=== PATIENT | female | born 2000 | race Caucasian/White ===

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

== ENCOUNTER 2023-10-30 13:14 | Emergency (ER) | payer OTHER, SELFPAY ==
--- NOTE | 2023-10-30 13:15 | ED.NAVMDI ---
HPI - Nausea/Vomiting/Diarrhea General Chief complaint: Nausea/Vomiting/Diarrhea Stated complaint: Vomiting and Diarrhea Time Seen by Provider: 10/30/23 13:15 Source: patient Mode of arrival: ambulatory Limitations: no limitations History of Present Illness HPI Narrative: Tosin is a 23-year-old female patient presenting to the clinic today with complaints of nausea and diarrhea that started last night around 8:00 p.m. She reports she made steak, rice, and broccoli for supper last night. Is concerned about foot poisoning. Her fiance and child ate the same food and are not presenting with these symptoms. She denies any known fever but has felt cold and is having some leg cramping. No ST but reports headache and dizziness with standing. States that any time she eats or drinks she has diarrhea. Nausea comes and goes. She has not had any vomiting. She is concerned about being contagious as she is having family travel from [place] to see her today. Related Data Home Medications Medication Instructions Recorded Confirmed levonorgestrel 0.1 mg-ethinyl 1 tablet PO DAILY 10/30/23 10/30/23 estradiol 0.02 mg (21)/iron (7) tablet (Wilfredo) trazodone 50 mg tablet 50 mg PO HS 10/30/23 10/30/23 Allergies Allergy/AdvReac Type Severity Reaction Status Date / Time No Known Allergies Allergy Verified 10/30/23 13:16 Review of Systems Review of Systems: Pertinent positives per HPI. Patient denies any fever, rash, visual changes, cough, runny nose, sore throat, shortness of breath, chest pain, palpitations, vomiting, constipation, or any urinary issues. [facility] Past Medical History Medical History Asthma Close exposure to COVID-19 virus Difficulty breathing Difficulty sleeping GERD (gastroesophageal reflux disease) History of gingivitis HSV (herpes simplex virus) anogenital infection Surgical History Surgical History History of surgical removal of ganglion cyst Hx of wisdom tooth extraction Family History Family History Father Heart disease Grandparent Lymphoma Grandparent Diabetes mellitus Social History Social History Smoking status: Never smoker Second hand tobacco smoke exposure: Yes Alcohol intake: never Substance use: never Gender identity (if verbalized by the patient): Female Spiritual care concerns: No Comments At the time of my signature, I reviewed and agree with the nursing past medical, surgical, social, and family history. There is no relevant family history pertinent to the patient complaint. Exam Narrative: General: Well-developed, well nourished, in no apparent distress. Head: Normocephalic, atraumatic. Cardio: Regular rate and rhythm, s1 and s2 normal, no murmur appreciated. Resp: Clear to auscultation bilaterally, no rhonchi, rales, wheezing or rubs. Abdomen: Soft, pliable, bowel sounds present in all quadrants, generalized tenderness to palpation, no organomegly, no CVAT tenderness. Course Course Emergency Course: Portions of this record may have been created with voice recognition software. Level of Care: Express Care Visit Vital Signs Vital signs: Vital signs reviewed Transfer Transfered to: [place] Transportation: Other (private car) Transfer rationale: Dehydration, hypotension, muscle cramping, dizziness, nausea/diarrhea Accepting physician: Chetan Klein[facility] Transfer comments: Private car- mother to drive. MDM - Nausea/Vomiting/Diarrhea MDM Narrative Medical decision making narrative: At the time of visit patient is resting comfortably on the exam table. Patient appears to be nontoxic. Labs: COVID and influenza test was negative Orthostatics: Lying-heart rate 112 with a blood pressure 93/
[2023-10-30 13:24] VITALS: BP 115/74; PULSE 119; RESP 18; TEMP 37.3; O2SAT 100
[2023-10-30 13:30] VITALS: BP 93/55; PULSE 112
[2023-10-30 13:39] VITALS: BP 90/52; PULSE 123
[2023-10-30 13:41] VITALS: BP 74/25; PULSE 144
== END 2023-10-30 13:46 | disposition short-term general hospital (02) ==
PROVIDERS: Emergency Provider Nurse Practitioner Family; PCP Nurse Practitioner Family
DX: I95.1 Orthostatic hypotension (principal); E86.0 Dehydration; R19.7 Diarrhea, unspecified; R11.0 Nausea; Z20.822 Contact with and (suspected) exposure to COVID-19; J45.909 Unspecified asthma, uncomplicated; K21.9 Gastro-esophageal reflux disease without esophagitis
CPT/HCPCS: 87426; 87804; 99213; G0463

== ENCOUNTER 2023-10-30 14:03 | Emergency (ER) | payer OTHER, SELFPAY ==
[2023-10-30 14:06] VITALS: BP 101/58; PULSE 124; RESP 16; TEMP 36.9; O2SAT 100
--- NOTE | 2023-10-30 14:11 | ED.NAVMDI ---
HPI - Nausea/Vomiting/Diarrhea General Chief complaint: Nausea/Vomiting/Diarrhea Stated complaint: Hypotensive, dizziness Time Seen by Provider: 10/30/23 14:10 History of Present Illness HPI Narrative: 23-year-old female presents emergency room for evaluation of nausea vomiting and diarrhea that began this morning. Patient states that she has multiple episodes of nonbilious and nonbloody following. Patient also complains of a headache, dizziness when standing, and body aches. Denies fever belly pain. Denies exposure to ill contacts Related Data Home Medications Medication Instructions Recorded Confirmed levonorgestrel 0.1 mg-ethinyl 1 tablet PO DAILY 10/30/23 10/30/23 estradiol 0.02 mg (21)/iron (7) tablet (Wilfredo) trazodone 50 mg tablet 50 mg PO HS 10/30/23 10/30/23 Allergies Allergy/AdvReac Type Severity Reaction Status Date / Time No Known Allergies Allergy Verified 10/30/23 13:16 Review of Systems Review of Systems: ROS unremarkable except for stated in HPI PMFSH Past Medical History Medical History Asthma Close exposure to COVID-19 virus Difficulty breathing Difficulty sleeping GERD (gastroesophageal reflux disease) History of gingivitis HSV (herpes simplex virus) anogenital infection Surgical History Surgical History History of surgical removal of ganglion cyst Hx of wisdom tooth extraction Family History Family History Father Heart disease Grandparent Lymphoma Grandparent Diabetes mellitus Social History Social History Smoking status: Never smoker Second hand tobacco smoke exposure: Yes Alcohol intake: never Substance use: never Gender identity (if verbalized by the patient): Female Spiritual care concerns: No Exam Narrative: GENERAL: Well-appearing, well-nourished, no physical limitations, and in no acute distress. HEAD: Normocephalic, atraumatic. EYES: Conjunctivae normal, PERRLA and EOMI. ENT: Mucous membranes dry CHEST: Clear to auscultation. No respiratory distress. No wheezes rales or rhonchi. HEART: Tachycardic with normal rhythm. No murmur heard. Normal peripheral pulses. ABDOMEN: Soft, nontender, nondistended, normal active bowel sounds. BACK: No CVA tenderness EXTREMITIES: Normal range of motion. No edema. No clubbing or cyanosis SKIN: Warm, dry, no rash. No noted wounds NEURO: No focal deficits. Alert and oriented x3. MAEW. CN's II-XI intact bilaterally, normal gait PSYCH: Cooperative. Normal mood and affect. Course Vital Signs Vital signs: Vital Signs Temperature 36.9 C 10/30/23 14:06 Pulse Rate 124 H 10/30/23 14:06 Respiratory Rate 16 10/30/23 14:06 Blood Pressure 101/58 L 10/30/23 14:06 Pulse Oximetry 100 10/30/23 14:06 Temperature 36.9 C 10/30/23 14:06 Pulse Rate 124 H 10/30/23 14:06 Respiratory Rate 16 10/30/23 14:06 Blood Pressure 101/58 L 10/30/23 14:06 Pulse Oximetry 100 10/30/23 14:06 MDM - Nausea/Vomiting/Diarrhea Lab Data 10/30/23 14:56 10/30/23 14:56 Labs: Lab Results 10/30/23 10/30/23 Range/Units 14:56 15:09 WBC 8.5 (4.5-10.0) K/mm3 RBC 4.73 (4.2-5.4) M/mm3 Hgb 14.5 D (12.0-15.0) g/dL Hct 42.6 (37.0-47.0) % MCV 90.1 (80-100) fl MCH 30.7 (26-34) pg MCHC 34.0 (32-36) g/dl RDW 12.6 (11.5-14.5) % Plt Count 310 D (150-375) k/mm3 MPV 10.9 H (7.4-10.4) fl Immature Gran % (Auto) 0.2 (0-0.5) % Neut % (Auto) 86.5 H (45.5-73.1) % Lymph % (Auto) 5.4 L (18.3-44.2) % [place] % (Auto) 7.7 (2.6-8.5) % Eos % (Auto) 0.0 (0-4.4) % Baso % (Auto) 0.2 (0.2-1.2) % Lymph # (Auto) 0.46 L (0.9-3.2) K/mm3 [place] # (Auto) 0.7 H (0.1-0.6) K/mm3 Eos #
[2023-10-30] MEDS: ONDANSETRON INJ 4 MG/2 ML VIAL IV PUSH (14:58)
[2023-10-30] MEDS: SODIUM CHLORIDE 0.9% IV 1,000 ML 999 ML IV CONT ×2 (14:58)
[2023-10-30] MEDS: DICYCLOMINE HCL INJ 20 MG/2 ML VIAL IM (14:59)
[2023-10-30 15:01] LABS: Basophils Percent Auto 0.2 % (0.2-1.2); Hematocrit 42.6 % (37.0-47.0); Hemoglobin 14.5 g/dL (12.0-15.0); Immature Granulocyte Percent A 0.2 % (0-0.5); Lymphocytes Percent Auto 5.4 % (18.3-44.2); Mean Corpuscular Hemoglobin 30.7 pg (26-34); Mean Corpuscular Volume 90.1 fl (80-100); Mean Platelet Volume 10.9 fl (7.4-10.4); Monocytes Percent Auto 7.7 % (2.6-8.5); Neutrophils Percent Auto 86.5 % (45.5-73.1); Platelet Count Result 310 k/mm3 (150-375); Red Blood Count 4.73 M/mm3 (4.2-5.4); Red Cell Distribution Width 12.6 % (11.5-14.5); White Blood Count 8.5 K/mm3 (4.5-10.0)
[2023-10-30 15:02] LABS: Immature Granulocyte Absolute 0.02 K/mm3 (0.00-0.031); Lymphocytes Absolute Auto 0.46 K/mm3 (0.9-3.2); Monocytes Absolute Auto 0.7 K/mm3 (0.1-0.6); Neutrophils Absolute Auto 7.4 K/mm3 (1.3-6.7)
[2023-10-30 15:12] LABS: Alanine Aminotransferase 18 U/L (6-35); Albumin Level 5.2 g/dL (3.5-5.1); Alkaline Phosphatase 68 U/L (38-126); Anion Gap 12 mmol/L (4-12); Aspartate Amino Transferase 25 U/L (14-36); Bilirubin,Total 1.3 mg/dL (0.2-1.3); Blood Urea Nitrogen 21 mg/dL (7-17); Calcium 9.7 mg/dL (8.4-10.2); Carbon Dioxide 22 mmol/L (22-30); Chloride 104 mmol/L (98-107); Estimated CRCL calculation 91 ml/min; Estimated Glomerular Filt Rate > 60; Glucose 116 mg/dL (65-110); Potassium 3.6 mmol/L (3.4-5.0); Sodium 138 mmol/L (137-145)
[2023-10-30 15:45] LABS: Appearance Urine Turbid (Clear); Bacteria Urine 4+ /hpf; Bilirubin Urine Negative (Negative); Blood Urine Negative (Negative); Color Urine Dark Yellow (Yellow); Glucose Urine UA Negative (Negative); Ketones Urine Trace mg/dL (Negative); Leukocyte Esterase Ur Trace LEU/UL (Negative); Need Manual Microscopic Reviewed; Nitrate Urine Negative (Negative); Non Pathogenic Casts 0-2; Protein Urine 1+ mg/dL (Negative); Squamous Epithelial Cell Urine Many /hpf (Few); pH Urine 5.5 (5.0-9.0)
[2023-10-30 15:48] LABS: Specific Grav Ur 1.034 (1.001-1.035)
[2023-10-30 15:52] LABS: Add Urine Microscopic? YES
[2023-10-30 16:16] VITALS: BP 94/53; PULSE 96; RESP 20; TEMP 37; O2SAT 100
== END 2023-10-30 16:26 | disposition home or self-care (01) ==
PROVIDERS: Emergency Provider Nurse Practitioner Family; PCP Nurse Practitioner Family
DX: K52.9 Noninfective gastroenteritis and colitis, unspecified (principal); J45.909 Unspecified asthma, uncomplicated; K21.9 Gastro-esophageal reflux disease without esophagitis
CPT/HCPCS: 36415; 80053; 81001; 81025; 85025; 87086; 87088; 87426; 87804; 96361; 96372; 96374; 99284; J0500; J2405; J7030

== ENCOUNTER 2024-05-30 18:10 | Emergency (ER) | payer BC, SELFPAY ==
--- NOTE | 2024-05-30 18:12 | ED.URI ---
HPI - URI/Sore Throat General Chief Complaint: Upper Respiratory Infection Stated Complaint: difficult to catch breath,cough,pneumonia exp Time Seen by Provider: 05/30/24 18:12 Source: patient Mode of arrival: ambulatory Limitations: no limitations History of Present Illness HPI Narrative: Tosin is a 23-year-old female patient presenting to the clinic today with complaints of shortness of breath, cough, and pneumonia exposure. She reports to have symptoms for over 1 week. Is coughing up some green phlegm. Denies any chest pain. Patient is 6 weeks MD elicited complaint: sore throat and nasal congestion Related Data Home Medications ?Medication ?Instructions ?Recorded ?Confirmed ?Last Taken ?Type trazodone 50 mg tablet 50 mg PO HS 10/30/23 05/30/24 Unknown History Allergies Allergy/AdvReac Type Severity Reaction Status Date / Time No Known Allergies Allergy Verified 05/30/24 18:13 Review of Systems Review of Systems: Pertinent positives per HPI. Patient denies any fever, chills, rash, headache, visual changes, dizziness, chest pain, palpitations, nausea, vomiting, diarrhea, constipation, abdominal pain, or any urinary issues. [facility] Past Medical History Medical History GERD (gastroesophageal reflux disease) HSV (herpes simplex virus) anogenital infection Close exposure to COVID-19 virus History of gingivitis Asthma Difficulty sleeping Difficulty breathing Surgical History Surgical History History of surgical removal of ganglion cyst Hx of wisdom tooth extraction Family History Family History Father Heart disease Grandparent Lymphoma Grandparent Diabetes mellitus Social History Social History Social History: Caffeine-daily Smoking status: Never smoker Second hand tobacco smoke exposure: Yes Alcohol intake: never Substance use: never Substance use type: does not use Gender identity (if verbalized by the patient): Female Spiritual care concerns: No Comments At the time of my signature, I reviewed and agree with the nursing past medical, surgical, social, and family history. There is no relevant family history pertinent to the patient complaint. Exam Narrative: General: Well-developed, well nourished, in no apparent distress Head: Normocephalic, atraumatic Eyes: Pupils equally round and reactive to light bilaterally, EOM intact, sclera and conjunctive clear, no discharge, lids normal Ears: TMs intact and clear, ear canals clear, no drainage, grossly hearing normal. Nose: Nares patent, clear discharge, no inflammation, no sinus tenderness. Mouth: Oral pharynx without lesions or masses, good dentition, MMM. Neck: Supple, trachea midline, no enlargement of anterior or posterior cervical nodes, no thyroid masses or goiter palpable. Cardio: Regular rate and rhythm, s1 and s2 normal, no murmur appreciated. Resp: Lungs sound mildly congested, no rhonchi, rales, wheezing or rubs Course Course Emergency Course: Portions of this record may have been created with voice recognition software. Level of Care: Express Care Visit Vital Signs Vital signs: Vital Signs Temperature 37.5 C 05/30/24 18:21 Pulse Rate 112 H 05/30/24 18:21 Respiratory Rate 16 05/30/24 18:21 Blood Pressure 126/54 L 05/30/24 18:21 Pulse Oximetry 97 05/30/24 18:21 Oxygen Delivery Room Air 05/30/24 18:21 Temperature 37.5 C 05/30/24 18:21 Pulse Rate 112 H 05/30/24 18:21 Respiratory Rate 16 05/30/24 18:21 Blood Pressure 126/54 L 05/30/24 18:21 Pulse Oximetry 97 05/30/24 18:21 Oxygen Delivery Room Air 05/30/24 18:21 Vital signs reviewed MDM - URI/Sore Throat MDM Narrative Medical decision making narrative: At the time of visit patient is resting comfortably on the exam table. Patient appears to be nontoxic. Plan: Patient has had exposure to pneumonia. She is [address] her on albuterol and azithromycin. Supportive measures were discussed with the patient and they voiced understanding discharge instructions and agrees to treatment plan. Return precautions reviewed Differential Diagnosis Differential diagnosis: Likely upper respiratory infection, otitis media, sinusitis, viral infection, bronchitis, influenza, pharyngitis and other (COVID) Discharge Plan Discharge Clinical Impression: Acute lower respiratory tract infection Patient Disposition: Home, Self-Care Condition: Stable Instructions: Antibiotic Form Additional Instructions: Take prescription medications only as prescribed-albuterol inhaler and azithromycin Increase fluids and stay well hydrated Tylenol for pain/fever Flonase and OTC antihistamines such as Zyrtec or Claritin as directed Vicks vapor rub to open sinuses Sinus rinses for congestion Cepacol spray, cough drops, throat lozenges, warm tea with honey/lemon, gargle salt water to soothe throat BRAT diet for diarrhea Clear liquids x 24 hours then advance as tolerated for nausea/vomiting Go to the ED if you develop a worsening in your condition- high fever not controlled by Tylenol or Motrin, dehydration, weakness, lethargy, shortness of breath, or chest pain. Follow up with your PCP in 3-5 days if symptoms persist. Approved Medications for Patients Cold and Flu Symptoms --Tylenol (regular or extra Strength) Fever (call if over 101?)--Tylenol (regular or extra Strength) Nasal Drainage/Head Congestion--Chlor-Trimeton, Sudafed, Tavist,Tylenol Sinus Cough--Robitussin, Delsym, Mucinex Sore Throat--Chloraseptic, Cepacol lozenges Allergy Symptoms--Benadryl, Zyrtec, Zyrtec D, Claritin, Claritin D Nausea--Emetrol, Vitamin B6 Tablets, Alisa, Alisa Tea, Preggie Pops, B- Suckers Constipation--Milk of Magnesia, Metamucil, Fiberall, Konsyl, Colace (Docusate Sodium) Diarrhea--Imodium, Kaopectate, Follow BRAT diet: bananas, rice, applesauce, tea/toast Heartburn--Maalox, Mylanta, TUMS, Prilosec OTC, Zantac, Tagament, Prevacid, Pepcid Hemorrhoids--Tucks Pads, Anusol, Preparation H, warm sitz baths Patient Language: Lao Prescriptions: New azithromycin 250 mg tablet See Rx Instructions .ROUTE .COMPLEX Qty: 6 0RF Rx Instructions: For 250 mg dose pack: take 500 mg today (day 1), then 250 mg for 4 days (days 2-5) albuterol sulfate 90 mcg/actuation HFA aerosol inhaler 2 puff inhalation Q4-6H PRN (Reason: shortness of breath or wheezing) 30 Days Qty: 8.5 0RF No Action trazodone 50 mg tablet 50 mg PO HS Follow-up/Referrals: Haywood,Blaine Acuña APRN [Primary Care Provider] - Time of Disposition: 18:26 Quality NIHSS Nursing Documentation ED NIHSS nursing documentation: reviewed/agree
[2024-05-30 18:21] VITALS: BP 126/54; PULSE 112; RESP 16; TEMP 37.5; O2SAT 97
== END 2024-05-30 18:30 | disposition home or self-care (01) ==
PROVIDERS: Emergency Provider Nurse Practitioner Family; PCP Nurse Practitioner Family
DX: O99.511 Diseases of the respiratory system complicating pregnancy, first trimester (principal); J22 Unspecified acute lower respiratory infection; J45.909 Unspecified asthma, uncomplicated; O99.611 Diseases of the digestive system complicating pregnancy, first trimester; K21.9 Gastro-esophageal reflux disease without esophagitis; Z3A.01 Less than 8 weeks gestation of pregnancy
CPT/HCPCS: 99213; G0463

== ENCOUNTER 2024-09-28 09:02 | Emergency (ER) | payer BC, SELFPAY ==
--- NOTE | ~2024-09-28 | XR_ITS ---
EXAMINATION: XR foot LT min 3V DATE: 09/28/2024 09:43 INDICATION: Left foot injury TECHNIQUE: Dorsoplantar, two oblique and lateral views of the left foot were obtained. COMPARISON: 01/21/2017 FINDINGS: Again seen is a small avulsion fracture with acute appearance at the proximal tip at the lateral tube rosity at the base of the left fifth metatarsal. This remains in near-anatomic alignment with negligi ble distraction. There is soft tissue swelling along the dorsolateral aspect of the midfoot. No other fractures identified. Joint spaces are normal. IMPRESSION: 1. Recurrent small acute avulsion fracture at the lateral base of the fifth metatarsal which remains in near-anatomic alignment. Reviewed, dictated and finalized at location A. IMPRESSION: 1. Recurrent small acute avulsion fracture at the lateral base of the fifth met atarsal which remains in near-anatomic alignment.
--- NOTE | 2024-09-28 09:03 | ED_ITS ---
HPI - Extremity Injury (Lower) General Chief Complaint: Extremity Injury, Lower Stated Complaint: left foot injury Time Seen by Provider: 09/28/24 09:50 Source: patient and RN notes reviewed Mode of arrival: ambulatory Limitations: no limitations History of Present Illness HPI Narrative: 30-year-old female who is 24 weeks presents with concern for left foot injury. Reports she has sweats yesterday stepping down a into her son room. Reports lateral pain, bruising, swelling. Reports she broke his foot in that area when she was in high school. MD complaint: foot injury Related Data Allergies Allergy/AdvReac Type Severity Reaction Status Date / Time No Known Allergies Allergy Verified 09/28/24 09:04 Review of Systems Review of Systems: CONSTITUTIONAL: Denies malaise, chills, sweats, or fever. SKIN: Denies rash or itching, open skin, laceration, abrasion, redness, warmth MUSCULOSKELETAL: Reports left foot pain, bruising, swelling NEUROLOGIC: Denies numbness, weakness All systems reviewed & are unremarkable except as noted in HPI and below PMFSH Past Medical History Medical History GERD (gastroesophageal reflux disease) HSV (herpes simplex virus) anogenital infection Close exposure to COVID-19 virus History of gingivitis Asthma Difficulty sleeping Difficulty breathing Surgical History Surgical History History of surgical removal of ganglion cyst Hx of wisdom tooth extraction Family History Family History Father Heart disease Grandparent Lymphoma Grandparent Diabetes mellitus Social History Social History Social History: Caffeine-daily Smoking status: Never smoker Second hand tobacco smoke exposure: Yes Alcohol intake: never Substance use: never Substance use type: does not use Gender identity (if verbalized by the patient): Female Spiritual care concerns: No Comments At time of signature, agree with nursing past medical, surgical, social and family history. There is no relevant family history pertinent to the presenting complaint Exam Narrative: GENERAL: Well-appearing, well-nourished, and in no acute distress. HEAD: Normocephalic, atraumatic. EYES: PERRLA, conjunctivae clear NECK: Supple. CHEST: Speaks in full sentences. No respiratory distress. HEART: Regular rate and rhythm. Normal and equal peripheral pulses. EXTREMITIES: Left foot, digits have grossly normal strength and sensation, grossly normal range of motion. Mild lateral foot edema and ecchymosis. 5/5 strength with ankle in digit flexion and extension. Normal sensation with sensitivity to light touch and pain. Lateral foot tenderness. No open wounds, no skin tenting, no devitalized tissue or atrophy, no trophic changes, no obvious deformity, alignment normal, nearby joints and structures intact. Distal pulses palpable and equal bilaterally, skin warm, dry, pink. Capillary refill less than 3 seconds. SKIN: Warm, dry, no rash. NEURO: Alert and oriented x3. PSYCH: Normal mood and affect Course Course Emergency Course: Patient is aware of diagnosis, understands and agrees to treatment plan. Anticipatory guidance given. Patient agrees to follow-up as directed and is ronan re of reasons to seek care at the emergency department. Portions of this record may have been created with voice recognition software Level of Care: Express Care Visit Vital Signs Vital signs: Reviewed. MDM - Extremity Injury (Lower) MDM Narrative Medical decision making narrative: The patient was evaluated by myself in the express care. History is obtained from patient who is an independent historian and physical exam was performed.? Available medical records were reviewed at this time. ? Exam findings show no acute concerns or changes; patient is non-toxic appearing and is in no distress. Patient is appropriate for outpatient treatment and follow-up. ? I have evaluated and discussed social determinants of health with the patient that could potentially impact subsequent diagnosis and treatment plans. ? Patients injury and pain is consistent with musculoskeletal etiology. No signs of neurological or vascular compromise on exam. Compartments and tissues are soft without signs of compartment syndrome. Pain is felt appropriate for further evaluation on an outpatient basis. Critical Care Time Critical Care Time Critical Care Time: No Discharge Plan Discharge Clinical Impression: Avulsion fracture of metatarsal bone of left foot Patient Disposition: Home Condition: Stable Instructions: Foot Fracture in Adults (ED) Additional Instructions: Please rest, ice and elevate the affected extremity. Please take Tylenol as needed, for pain. Follow up with Orthopedic Surgery in 1-2 days for further evaluation - please call for an appointment. Keep postop shoe and Anselmo wrap clean, dry, on during waking hours. Please go to ER immediately for increased pain, tingling/numbness, swelling, redness, and fever Patient Language: Bolivian Follow-up/Referrals: Phong Morales MD [Physician] - Haywood,Blaine Acuña APRN [Primary Care Provider] - Time of Disposition: 10:06
[2024-09-28 09:14] VITALS: BP 118/68; PULSE 106; RESP 16; TEMP 36.1; O2SAT 100
== END 2024-09-28 10:14 | disposition home or self-care (01) ==
PROVIDERS: Emergency Provider Nurse Practitioner; PCP Nurse Practitioner Family
DX: O9A.212 Injury, poisoning and certain other consequences of external causes complicating pregnancy, second trimester (principal); S92.352A Displaced fracture of fifth metatarsal bone, left foot, initial encounter for closed fracture; Z3A.24 24 weeks gestation of pregnancy; X58.XXXA Exposure to other specified factors, initial encounter; O99.612 Diseases of the digestive system complicating pregnancy, second trimester; K21.9 Gastro-esophageal reflux disease without esophagitis; O99.519 Diseases of the respiratory system complicating pregnancy, unspecified trimester; J45.909 Unspecified asthma, uncomplicated
CPT/HCPCS: 73630; 99214; G0463

== ENCOUNTER 2024-12-07 13:50 | Outpatient (CLI) | payer BC, SELFPAY ==
--- NOTE | ~2024-12-07 | US_ITS ---
EXAM EXAMINATION: US OB follow up DATE: 12/08/2024 0:44 CDT INDICATION: Evaluate estimated weight, presentation and HENNA COMPARISON: None TECHNIQUE: Real-time transabdominal obstetric ultrasound. FINDINGS: 2 para 1. There is a single intrauterine gestation in vertex presentation. The placenta is anterior without placenta previa. Cervical length was not demonstrated on the submitted images. cardiac activity and movement is noted with a heart rate of 132 beats per minute. Amniotic fluid index measures 14.1 cm which is within normal limits. The following biometric data were obtained: Biparietal diameter (BPD): 8.5 cm; head circumference (HC): 31 cm; abdominal circumference (AC): 32 cm; femur length (FL): 7.1 cm. These measurements are concordant. Estimated weight is 2744 g +/- 412 g, which correlates with the 90th percentile when 01/09/2025 is used as estimated date of delivery. As single measurements, these parameters are each equal to the following estimated gestational ages: BPD: 34 weeks 2 days. HC: 34 weeks 6 days. AC: 35 weeks 6 days. FL: 36 weeks 2 days. estimated gestational age based solely on measurements from this exam is 35 weeks 2 days +/- 2 weeks 3 days. IMPRESSION: Single intrauterine gestation in vertex presentation with cardiac activity identified. Amniotic fluid index is within normal limits. Estimated weight correlates with the 90th percentile when 01/09/2025 is used as estimated date o f delivery. Reviewed, dictated and finalized at location A. IMPRESSION: Single intrauterine gestation in vertex presentation with cardiac activit y identified. Amniotic fluid index is within normal limits. Estimated weight correlates with the 90th percentile when 01/09/2025 is us ed as estimated date of delivery.
== END 2024-12-07 13:51 | disposition home or self-care (01) ==
PROVIDERS: PCP Obstetrics & Gynecology; Visit Provider Obstetrics & Gynecology
DX: Z36.4 Encounter for antenatal screening for fetal growth retardation (principal); Z87.59 Personal history of other complications of pregnancy, childbirth and the puerperium
CPT/HCPCS: 76816

== ENCOUNTER 2025-01-04 14:40 | Outpatient (CLI) | payer BC, SELFPAY ==
--- OUTSIDE RECORDS SUMMARY | 2025-01-04 14:43 | XMS_ITS | Clinical Summary ---
Author Organization [facility] Address [address] [place] [address] Care Team Providers Care Crop Consultant Name Role Phone Lex Emanuel DO Primary Care Provider [phone] Allergies No known active allergies Medications Sprintec, 28, 0.25-35 mg-mcg per tabletIndications : Contraception Take 1 tablet by mouth daily before breakfast 06/19/19 21 Active albuterol HFA (PROVENTIL HFA,VENTOLIN HFA,PROAIR HFA) 90 mcg/actuation inhaler Inhale 2 puffs every 6 (six) hours as needed for wheezing Active HYDROcodone-aceta minophen (NORCO) 5-325 mg per tabletIndications :Pain Take 1 tablet by mouth every 6 (six) hours as needed for pain (breakthrough pain only. Don't take this medication unless you need it.) 5 tablet 07/06/19 Active Additional Information Patient not taking.Reported on 12/13/2021 docusate sodium (COLACE) 100 mg capsuleIndication s:constipation Take 1 capsule (100 mg total) by mouth 2 (two) times a day as needed for constipation 10 capsule 07/06/19 21 Active Additional Information Patient not taking.Reported on 12/13/2021 ergocalciferol (VITAMIN D) 50,000 unit capsule Take 50,000 Units by mouth 10/20/19 22 Active metoclopramide (REGLAN) 10 mg tablet Take 10 mg by mouth every 6 (six) hours as needed 08/30/19 22 Active erythromycin (ILOTYCIN) ophthalmic ointment 10/15/19 22 Active valACYclovir (VALTREX) 500 mg tablet Take 500 mg by mouth 2 (two) times a day Active Active Problems Problem Noted Date Diagnosed Date Ganglion cyst 07/04/2020 Overview (07/04/2020): Added automatically from request for surgery [id number] Closed fracture of fifth metatarsal bone 017 Hay fever 05/19/2012 Bronchial asthma 05/19/2012 Resolved Problems Problem Noted Date Diagnosed Date Resolved Date Poor growth affecting management of mother, antepartum 11/21/2021 02/11/2022 Overview (12/13/2021): Previously counseled Datin week ultrasound Genetic Screening: LR NIPT Repeat growth EFW 10%, AC <1% Plan: -Weekly UA dopplers/BPP + NST - until delivery - Delivery at 37 weeks based on current AC <1% Supervision of high-risk pre gnancy, unspecified trimester 11/21/2021 02/11/2022 Overview (12/11/2021): REQUESTED INITIAL LABS 11/20/21 AND 11/21/21 [x] Co-management vs. [] Full [facility] Care; [] Red Team [x] Blue Team Referring Provider: Abundio See [phone] [] or Medicare Insurance [x] Dating Criteria: Per referring VIOLETA 01/10/22 (I can't tell where they pulled VIOLETA from) [x] Labs: Rh [A+], Ab [negative], Rubella [immune], HIV [non-reactive], HepBSAg [negative], RPR [non-reactive], Hep C [not done], Varicella [not done], GC/CT [negative/negative] [x] Genetic Screening: AFP negative, NIPT negative, CF negative [x] CBC/Hgb 12.5/37.3/plt 259 [] Early 1hr GTT (if indicated) [x] UCx: 07/04/21: 10,000-25,000 CFU/mL GBS, 11/22: no growth [] Pap: [] LD ASA (if indicated) starting at 12 weeks: [] EPDS [ ]; PNBHS referral (if indicated) 2nd Tri Labs: [x] Anatomy ultrasound: Complete, IUGR [x] CBC/1hr gtt at 24-28wks: 10.8/32.6; GTT 131 [x] 3hr GTT: 79,115,104,96 [] Flu Shot (Feb-May): [] Tdap (27-36wks): [] COVID Vaccine: [] Rhogam at 28 wks (if Rh neg): 3rd Tri Labs: [] CBC/HIV/RPR/T&S: [] GBS: [] GC/CT (if indicated): [] COVID testing: [] testing: Counseling [] MOD: [] Place of delivery: [] MOC: [] Method of feeding: [] Concrete Mixer Loader Truck Mounted: [] PP Depression Discussed: Immunizations Immunization Administration Dates Next Due DTaP 10/16/2007, 4,03/28/2003,01/24,2002 HPV, Quadrivalent 08/27/2014,04/04/2014,12/03/19 14 Hep A, Pediatric 12/02/2013 Hep A, Unspecified 11/27/2015 Hep B, Adolescent or Pediatric 03/28/2003,2002 Hep B, Unspecified 2002 HiB 05/18/2004, 4,03/28/2003,01/24,2002 IPV 10/16/2007, 3,01/24/2003,11/27 Influenza, Quadrivalent, Spl it, Preservative Free, Intramuscular 04/12/2016,04/29/2014,03/12/2013 Influenza, Split 05/05/2009 Influenza, Trivalent, IM (MDV) 04/10/2012,2010 Influenza, Trivalent, Preser vative Free, Intramuscular 03/18/2015 MMR 11/18/2007,12/26/2003,09/26/2003 Meningococcal Conjugate (Menveo) 10/21/2018 Meningococcal MCV4P (Menactra) 12/02/2013 Pneumococcal Conjugate 7-Valent 05/18/2004,03/20,2002 Tdap 12/02/2013 Varicella 09/14/2010,12/26/2003,09/26/2003 Surgical History Surgery Date Site/Laterality Comments WISDOM TOOTH EXTRACTION 06/16/2019 - 06/15/2020 Family History Medical History Relation Name Comments No Known Problems Father No Known Problems Mother Anesthesia problems Neg Hx Relation Name Status Comments Father Mother Social History Tobacco Use Types Packs/Day Years Used Date Smoking Tobacco: Never Smokeless Tobacco: Never Alcohol Use Standard Drinks/Week Comments Never 0 (1 standard drink = 0.6 oz pur e alcohol) AUDIT-C Answer Date Recorded Q1: How often do you have a drink containing alc ohol? Never 07/04/2020 Average Number of Drinks Not on file 021 Frequency of Binge Drinking Not on file 06/16 Comments No Sex and Gender Information Value Date Recorded Sex Assigned at Not on file Legal Sex Female 10:10 AM FLOOR SURFACER Gender Identity Not on file Sexual Orientation Not on file Obstetrics History Para Term AB IAB SAB Ectopic Multiple Livin g Live Births 1 Date Outcome GA Total Labor Labor/2nd/3rd Weight Sex Type Anes PTL Ilana A1 A5 Name Clin Last Filed Vital Signs Vital Sign Reading Time Taken Comments Blood Pressure 105/69 12/13/2021 1:07 PM CDT Pulse 112 12/13/2021 1:07 PM CDT Temperature 36.6 C (97.9 F) 07/06/2020 9:43 AM FLOOR SURFACER Respiratory Rate 15 07/06/2020 10:00 AM FLOOR SURFACER Oxygen Saturation 98% 12/13/2021 1:07 PM CDT Inhaled Oxygen Concentration - - Weight 73.1 kg (161 lb 3.2 oz) 12/13/2021 1:07 P M CDT Height 167.6 cm (5' 6) 12/13/2021 1:07 PM CDT Body Mass Index 26.02 12/13/2021 1:07 PM CDT Plan of Treatment Not on file Insurance [facility] Care Teams Crop Consultant Relationship Specialty Start Date End Date Lex Emanuel DO PCP - General Internal Medicine 12/05/21
--- OUTSIDE RECORDS SUMMARY | 2025-01-04 14:43 | XMS_ITS | Referral Summary ---
Author Organization [facility] Address [address] [place] [address] Care Team Providers Care Maintenance Pipefitter Name Role Phone Lex Emanuel DO Primary Care Provider [phone] Allergies No known active allergies Medications Sprintec, [...] (07/04/2020): Added automatically from request for surgery [id number] Closed fracture of fifth metatarsal bone 017 [...] AND 11/21/21 [x] Co-management vs. [] Full [facility] Care; [] Red Team [x] Blue Team Referring Provider: Abundio See [phone] [] or Medicare Insurance [x] Dating Criteria: [...] [] MOC: [] Method of feeding: [] Lead Generation Marketing Manager: [] PP Depression Discussed: Immunizations Immunization Administration [...] Conjugate 7-Valent 05/18/2004,03/20,2002 Tdap 12/02/2013 Varicella 09/14/2010,12/26/2003,09/26/2003 Social History Tobacco Use Types Packs/Day Years [...] on file Legal Sex Female 10:10 AM ASSISTANT CENTER DIRECTOR Gender Identity Not on file Sexual Orientation Not on file Last Filed Vital Signs Vital Sign Reading Time Taken Comments Blood Pressure 105/69 12/13/2021 1:07 PM CDT Pulse 112 12/13/2021 1:07 PM CDT Temperature 36.6 C (97.9 F) 07/06/2020 9:43 AM ASSISTANT CENTER DIRECTOR Respiratory Rate 15 07/06/2020 10:00 AM ASSISTANT CENTER DIRECTOR Oxygen Saturation 98% 12/13/2021 1:07 PM CDT Inhaled Oxygen Concentration - - Weight 73.1 kg (161 lb 3.2 oz) 12/13/2021 1:07 P M CDT Height 167.6 cm (5' 6) 12/13/2021 1:07 PM CDT Body Mass Index 26.02 12/13/2021 1:07 PM CDT Plan of Treatment Not on file Insurance [facility] Care Teams Maintenance Pipefitter Relationship Specialty Start Date End Date Lex Emanuel DO PCP - General Internal Medicine 12/05/21
--- OUTSIDE RECORDS SUMMARY | 2025-01-04 14:43 | XMS_ITS | Clinical Summary ---
Author Organization [facility] [employer] Address [address] [address] Care Team Providers Care Barn Manager Name Role Phone hCeri Yap MD Primary Care Provider [phone] Source Comments [facility],non-owned Affiliates and Associated Physician Practices is amultiple site organization consisting of ambulatory clinics and hospital sitesin [place], [place], [place] and [place]. This disclosure is being madepursuant to the Care Everywhere program and may not contain all information available regarding this patient. Last updated 18.[facility] [employer] Allergies No known active allergies Medications * Be aware that medications may not be up to date on this document. Alwaysverify current medications with the patient. PROAIR HFA 108 (90 BASE) MCG/ACT inhaler INHALE 2 PUFFS PO Q 3 TO 4 HOURS OR TID UNTIL NO COUGH FOR 3 DAYS 1 12/23/2016 Active albuterol (PROVENTIL;JULIO LIA) (2.5 MG/3ML) 0.083% nebulizer solution VVN Q 3 TO 4 H OR TID UNTIL NO COUGH FOR 3 DAYS 3 09/13/2016 Active Active Problems Problem Noted Date Diagnosed Date Closed nondisplaced fracture of metatarsal bone of left foot with routine healing 01/21/2017 Closed fracture of fifth metatarsal bone 017 Social History Tobacco Use Types Packs/Day Years Used Date Smoking Tobacco: Passive Smo ke Exposure - Never Smoker Smokeless Tobacco: Never Comments No Sex and Gender Information Value Date Recorded Sex Assigned at Not on file Legal Sex Female 9:17 AM CDT Gender Identity Not on file Sexual Orientation Not on file Last Filed Vital Signs Vital Sign Reading Time Taken Comments Blood Pressure - - Pulse - - Temperature - - Respiratory Rate - - Oxygen Saturation - - Inhaled Oxygen Concentration - - Weight 54.6 kg (120 lb 5.9 oz) 12/27/2016 10:03 AM CDT Height 166.2 cm (5' 5.43) 12/27/2016 10:03 AM C DT Body Mass Index 19.77 12/27/2016 10:03 AM CDT Plan of Treatment Health Maintenance Due Date Last Done Comments HIV SCREENING 2017 HPV VACCINE (1 - 3-dose series) 2017 CHLAMYDIA/GONORRHEA SCREENING 2018 MENINGOCOCCAL (Group B) VACCINE SHARED DECISION-MAKING (1 of 2 - Standard) 2018 HEPATITIS C SCREENING 09/18/2020 DTAP/TDAP/TD VACCINES (1 - Tdap) 2021 HEPATITIS B VACCINE (1 of 3 - 19+ 3-dose series) 2021 PAP SMEAR 09/24/2023 COVID-19 VACCINE (3 - 2023- season) 2024 03/10/2021, 02/10/2021 DEPRESSION SCREENING 06/16/2024 INFLUENZA VACCINE (#1) 2025 6, 03/18/2015, 04/29/2014, Additional history exists ZOSTER VACCINE (1 of 2) 2052 HIB VACCINE Aged Out No longer eligi ble based on patient's age to complete this topic MENINGOCOCCAL GROUPS A/C/Y/W VACCINE Aged Out No longer eligible based on patient's age to complete this topic PNEUMOCOCCAL VACCINE Aged Out No long er eligible based on [place] [id number] [place] [facility] Care Teams Barn Manager Relationship Specialty Start Date End Date Cheri Yap MD [address] [place] [address] PCP - General Pediatrics 12/27/16
[2025-01-04 16:19] LABS: HIV 1/2 Ab P24 Ag Result Negative (Negative)
== END 2025-01-04 14:41 | disposition home or self-care (01) ==
LOC: ANHOBOP 14:41
PROVIDERS: Visit Provider Obstetrics & Gynecology
DX: Z34.90 Encounter for supervision of normal pregnancy, unspecified, unspecified trimester (principal); Z20.6 Contact with and (suspected) exposure to human immunodeficiency virus [HIV]; Z3A.00 Weeks of gestation of pregnancy not specified
CPT/HCPCS: 36415; 86703; G0432

== ENCOUNTER 2025-01-20 04:57 | Inpatient (IN) | payer BC, SELFPAY ==
[2025-01-20] VITALS (140 sets, daily range): BP systolic 85–210; BP diastolic 38–191; PULSE 69–165; RESP 16–18; TEMP 36.4–37.3; O2SAT 79–100
--- OUTSIDE RECORDS SUMMARY | 2025-01-20 05:02 | XMS_ITS | Clinical Summary ---
Author Organization [facility] [employer] Address [address] [place] [address] Care Team Providers Care Health Informatics Advisor Name Role Phone Cheri Yap MD Primary Care Provider [phone] Source Comments [facility],non-owned Affiliates and Associated Physician Practices is amultiple site organization consisting of ambulatory clinics and hospital sitesin [place], [place], [place] and [place]. This disclosure is being madepursuant to the Care Everywhere program and may not contain all information available regarding this patient. Last updated 18.[facility] [employer] Allergies No known active allergies Medications * [...] [place] [phone] [place] - [place] [facility] Care Teams Health Informatics Advisor Relationship Specialty Start Date End Date Cheri Yap MD [address] [place] [address] PCP - General Pediatrics 12/27/16
--- OUTSIDE RECORDS SUMMARY | 2025-01-20 05:02 | XMS_ITS | Clinical Summary ---
Author Organization [facility] Address [address] [place] [address] Care Team Providers Care Forest Pathology Professor Name Role Phone Lex Emanuel DO Primary Care Provider [phone] Allergies No known active allergies Medications Sprintec, [...] (07/04/2020): Added automatically from request for surgery [id number] Closed fracture of fifth metatarsal bone 017 [...] AND 11/21/21 [x] Co-management vs. [] Full [facility] Care; [] Red Team [x] Blue Team Referring Provider: Abundio See [phone] [] or Medicare Insurance [x] Dating Criteria: [...] [] MOC: [] Method of feeding: [] Supervisor Opening And Picking: [] PP Depression Discussed: Immunizations Immunization Administration [...] on file Legal Sex Female 10:10 AM CODING SPECIALIST Gender Identity Not on file Sexual Orientation [...] 36.6 C (97.9 F) 07/06/2020 9:43 AM CODING SPECIALIST Respiratory Rate 15 07/06/2020 10:00 AM CODING SPECIALIST Oxygen Saturation 98% 12/13/2021 1:07 PM CDT Inhaled Oxygen Concentration - - Weight 73.1 kg (161 lb 3.2 oz) 12/13/2021 1:07 P M CDT Height 167.6 cm (5' 6) 12/13/2021 1:07 PM CDT Body Mass Index 26.02 12/13/2021 1:07 PM CDT Plan of Treatment Not on file Insurance [facility] Care Teams Forest Pathology Professor Relationship Specialty Start Date End Date Lex Emanuel DO PCP - General Internal Medicine 12/05/21
[2025-01-20] MEDS: LACTATED RINGERS 500 ML 999 ML IV CONT (05:39)
[2025-01-20] MEDS: ONDANSETRON INJ 4 MG/2 ML VIAL IV PUSH (05:42)
[2025-01-20 05:44] LABS: Hematocrit 33.9 % (37.0-47.0); Hemoglobin 10.9 g/dL (12.0-15.0); Immature Granulocyte Percent A 0.5 % (0-0.5); Lymphocytes Absolute Auto 1.84 K/mm3 (0.9-3.2); Mean Corpuscular HGB Conc 32.2 g/dl (32-36); Mean Corpuscular Hemoglobin 27.9 pg (26-34); Mean Corpuscular Volume 86.9 fl (80-100); Nucleated Red Blood Cells Absolute Auto 0.000 K/mm3 (0.0-0.012); Nucleated Red Blood Cells Perc 0.0 % (0.0-0.2); Platelet Count Result 243 k/mm3 (150-375); Red Blood Count 3.90 M/mm3 (4.2-5.4); White Blood Count 10.9 K/mm3 (4.5-10.0)
[2025-01-20] MEDS: OXYTOCIN 30 UNITS/NS 500 ML 30 UNITS/500 ML BAG IV CONT (06:27)
[2025-01-20 06:32] LABS: Syphilis IgG/IgM Antibody Non-Reactive (Nonreactive)
--- NOTE | 2025-01-20 06:32 | WPDANESEPP ---
Anes - Eval Pre Procedure Procedure: Labor epidural Date/Time: 01/20/25 06:32 Surgeon: Mildred Preop Diagnosis: pain during labor Pre Op Diagnosis: IOL Patient Data Age: 24 Gender: F Height: Weight: Last Vital Signs Temp 37.2 C 01/20/25 05:43 Pulse 103 H 01/20/25 06:30 BP 99/58 L 01/20/25 06:30 Pulse Ox 96 01/20/25 06:27 Allergies Allergy/AdvReac Type Severity Reaction Status Date / Time No Known Allergies Allergy Verified 01/11/25 13:13 Home Medications ?Medication ?Instructions ?Recorded ?Confirmed ?Type vit 122-ferrous fumarate tablet PO 09/30/24 01/12/25 History 27 mg iron-folic acid 800 mcg tablet ( Multi) valacyclovir 500 mg tablet 500 mg PO DAILY 12/20/24 01/12/25 History (Valtrex) Laboratory Tests 01/20/25 05:38 WBC 10.9 H K/mm3 (4.5-10.0) RBC 3.90 L M/mm3 (4.2-5.4) Hgb 10.9 L D g/dL (12.0-15.0) Hct 33.9 L % (37.0-47.0) MCV 86.9 fl (80-100) MCH 27.9 pg (26-34) MCHC 32.2 g/dl (32-36) RDW 15.5 H % (11.5-14.5) Plt Count 243 k/mm3 (150-375) MPV 12.4 H fl (7.4-10.4) Immature Gran % (Auto) 0.5 % (0-0.5) Neut % (Auto) 75.0 H % (45.5-73.1) Lymph % (Auto) 17.0 L % (18.3-44.2) [place] % (Auto) 6.9 % (2.6-8.5) Eos % (Auto) 0.5 % (0-4.4) Baso % (Auto) 0.1 L % (0.2-1.2) Lymph # (Auto) 1.84 K/mm3 (0.9-3.2) [place] # (Auto) 0.8 H K/mm3 (0.1-0.6) Eos # (Auto) 0.1 K/mm3 (0-0.3) Baso # (Auto) 0.0 K/mm3 (0.0-0.1) Abs Immat Gran (auto) 0.05 H K/mm3 (0.00-0.031) Absolute Neuts (auto) 8.2 H K/mm3 (1.3-6.7) Absolute Nucleated RBC 0.000 K/mm3 (0.0-0.012) Nucleated RBC % 0.0 % (0.0-0.2) Blood Type A Positive Antibody Screen Pending Patient hx anesthesia problems: none Family hx anesthesia problems: none Results Review: All pre-operative results and documents have been reviewed as part of the pre-operative evaluation. [facility] Past Medical History Medical History (Updated 01/20/25 @ 06:33 by Maria G Dumont CRNA) IUP (intrauterine ), incidental GERD (gastroesophageal reflux disease) HSV (herpes simplex virus) anogenital infection Close exposure to COVID-19 virus History of gingivitis Asthma Difficulty sleeping Difficulty breathing Surgical History Surgical History History of surgical removal of ganglion cyst Hx of wisdom tooth extraction Family History Family History Father Heart disease Grandparent Lymphoma Grandparent Diabetes mellitus Mother Brain bleed Tachycardia Social History Social History Social History: Caffeine-daily Smoking status: Never smoker Second hand tobacco smoke exposure: No Alcohol intake: never Substance use: never Substance use type: does not use Do You Feel Safe in your Home?: Yes Lack of Transportation: No Lack of Food: Never True Current Housing: I Have Housing Concerned About Future Housing: No Difficulty Paying Gas/Electric Bills: No Difficulty Paying for Meds: No Currently Unemployed: No Education: Associate Degree Difficulty w/ Childcare or Family Care: No Gender identity (if verbalized by the patient): Female Spiritual care concerns: No Exam Day of Procedure 01/20/25 06:32
--- NOTE | 2025-01-20 08:52 | PM.IMHP ---
H&P: HPI History of Present Illness Date/Time: 01/20/25 08:52 Chief Complaint: Here for induction of labor. Narrative: 24 y/o at 40 1/7 weeks here for induction of labor. GBS neg. Review of Systems Review of Systems: All systems reviewed & are unremarkable except as noted in HPI and below PMFSH Past Medical History Medical History IUP (intrauterine ), incidental GERD (gastroesophageal reflux disease) HSV (herpes simplex virus) anogenital infection Close exposure to COVID-19 virus History of gingivitis Asthma Difficulty sleeping Difficulty breathing Surgical History Surgical History History of surgical removal of ganglion cyst Hx of wisdom tooth extraction Family History Family History Father Heart disease Grandparent Lymphoma Grandparent Diabetes mellitus Mother Brain bleed Tachycardia Social History Social History Social History: Caffeine-daily Smoking status: Never smoker Second hand tobacco smoke exposure: No Alcohol intake: never Substance use: never Substance use type: does not use Do You Feel Safe in your Home?: Yes Lack of Transportation: No Lack of Food: Never True Current Housing: I Have Housing Concerned About Future Housing: No Difficulty Paying Gas/Electric Bills: No Difficulty Paying for Meds: No Currently Unemployed: No Education: Associate Degree Difficulty w/ Childcare or Family Care: No Gender identity (if verbalized by the patient): Female Spiritual care concerns: No Meds Home Medications and Allergies Home Medications ?Medication ?Instructions ?Recorded ?Confirmed ?Type vit 122-ferrous fumarate tablet PO 09/30/24 01/12/25 History 27 mg iron-folic acid 800 mcg tablet ( Multi) valacyclovir 500 mg tablet 500 mg PO DAILY 12/20/24 01/12/25 History (Valtrex) Allergies Allergy/AdvReac Type Severity Reaction Status Date / Time No Known Allergies Allergy Verified 01/11/25 13:13 Vital Signs Vital Signs - 24 hr 01/20/25 05:14 01/20/25 05:16 01/20/25 05:19 Temperature Pulse Rate 127 H Blood Pressure 112/76 Pulse Oximetry 98 98 Oxygen Delivery 01/20/25 05:24 01/20/25 05:29 01/20/25 05:34 Temperature Pulse Rate Blood Pressure Pulse Oximetry 98 100 100 Oxygen Delivery 01/20/25 05:39 01/20/25 05:43 01/20/25 05:44 Temperature 98.9 F Pulse Rate Blood Pressure Pulse Oximetry 99 98 Oxygen Delivery 01/20/25 05:49 01/20/25 05:54 01/20/25 05:59 Temperature Pulse Rate Blood Pressure Pulse Oximetry 98 98 98 Oxygen Delivery 01/20/25 06:04 01/20/25 06:09 01/20/25 06:14 Temperature Pulse Rate Blood Pressure Pulse Oximetry 97 99 96 Oxygen Delivery 01/20/25 06:19 01/20/25 06:24 01/20/25 06:27 Temperature Pulse Rate Blood Pressure Pulse Oximetry 97 99 96 Oxygen Delivery 01/20/25 06:30 01/20/25 06:32 01/20/25 06:37 Temperature Pulse Rate 103 H Blood Pressure 99/58 L Pulse Oximetry 96 96 Oxygen Delivery 01/20/25 06:40 01/20/25 06:42 01/20/25 06:45 Temperature Pulse Rate 97 Blood Pressure 107/68 Pulse Oximetry 97 Oxygen Delivery Room Air 01/20/25 06:47 01/20/25 06:50 01/20/25 06:52 Temperature 98.1 F Pulse Rate Blood Pressure Pulse Oximetry 97 97 Oxygen Delivery 01/20/25 06:57 01/20/25 07:01 01/20/25 07:02 Temperature Pulse Rate 87 Blood Pressure 99/61 L Pulse Oximetry 97 97 Oxygen Delivery 01/20/25 07:07 01/20/25 07:15 01/20/25 07:20 Temperature Pulse Rate Blood Pressure Pulse Oximetry 97 97 97 Oxygen Delivery 01/20/25 07:25 01/20/25 07:30 01/20/25 07:31 Temperature Pulse Rate 78 Blood Pressure 97/50 L Pulse Oximetry 97 97 Oxygen Delivery 01/20/25 07:35 01/20/25 07:40 01/20/25 07:45 Temperature Pulse Rate Blood Pressure Pulse Oximetry 97 97 98 Oxygen Delivery 01/20/25 07:46 01/20/25 07:50 01/20/25 07:55 Temperature Pulse Rate 101 H Blood Pressure 110/82 Pulse Oximetry 98 98 Oxygen Delivery 01/20/25 08:00 01/20/25 08:05 01/20/25 08:10 Temperature Pulse Rate 83 Blood Pressure 103/64 Pulse Oximetry 98 97 98 Oxygen Delivery 01/20/25 08:15 01/20/25 08:20 01/20/25 08:25 Temperature Pulse Rate 84 Blood Pressure 95/39 L Pulse Oximetry 97 98 97 Oxygen Delivery 01/20/25 08:30 01/20/25 08:35 01/20/25 08:47 Temperature Pulse Rate 86 Blood Pressure 98/61 L Pulse Oximetry 98 98 100 Oxygen Delivery Exam Const: Other: Well-developed, well-nourished female in no acute distress. Neck: Other: Neck: Trachea midline, no thyromegaly or masses. Resp: Other: Lungs: Normal respiratory effort. Clear to auscultation bilaterally. Cardio: Other: Heart: Regular rate and rhythm with normal S1-S2. GI: Other: ABD: Soft, nontender, nondistended, gravid. No guarding or rebound tenderness. No hepatosplenomegaly. NST reactive. TOCO: irregular contractions. : Other: Cervix: 3-4/80/-2. Vertex. AROM with clear fluid. IUPC placed. Back/Spine/Pelvis: Other: Back: No CVA tenderness. Skin: Other: Skin: No lesions, rashes or ulcers noted. Extrem: Other: Extremities: nontender with no edema Psych: Other: Mental status grossly normal, with normal mood and affect. H&P: Results Labs Labs: Short CBC 01/20/25 Range/Units 05:38 WBC 10.9 H (4.5-10.0) K/mm3 Hgb 10.9 L D (12.0-15.0) g/dL Hct 33.9 L (37.0-47.0) % Plt Count 243 (150-375) k/mm3 Assessment and Plan Assessment and plan (1) : Qualifiers: Weeks of gestation: 40 weeks Qualified Code(s): Z3A.40 - 40 weeks gestation of Code(s): Z34.90 - Encounter for supervision of normal , unspecified, unspecified trimester Status: Acute Assessment and Plan: A: IUP at 40 1/7 weeks. P: She desires induction of labor. Oxytocin. Anticipate .
[2025-01-20] MEDS: LACTATED RINGERS 1,000 ML 999 ML IV CONT (09:01)
[2025-01-20] MEDS: fentaNYL CITRATE INJ (*CRX) 100 MCG/2 ML VIAL IV PUSH (09:45)
[2025-01-20] MEDS: LACTATED RINGERS 1,000 ML 125 ML IV CONT (10:07)
--- NOTE | 2025-01-20 10:44 | PM.OBPRVD ---
OB - Vaginal Delivery Note Procedure Delivery date: 01/20/25 Induction method: Per Pitocin Protocol Delivery augmentation: Rupture of Membranes Delivery monitor: External FHT, External Uterine and Internal Uterine Route of delivery: Laceration Description: None Specimen: Yes (cord blood) Quantitative Blood Loss (ml): 85 Anesthesia type: Epidural Disposition: PACU Complications: None Narrative: 24 y/o at 40 1/7 weeks gestation who presented to the hospital for induction of labor. Oxytocin was administered intravenously. Amniotomy was performed with return of clear fluid. She received an epidural for pain control. Her labor progressed and her cervix dilated completely. She pushed with good effort and delivered the 's head to the perineum, followed by the body. The nose and mouth were bulb suctioned. After a delay, the cord was clamped and cut. The infant was handed off the field. Cord blood was collected. The placenta delivered spontaneously and was grossly normal in appearance. The usual 3 vessel cord was noted. There were no significant lacerations. Needle and instrument counts were correct. The patient was taken to recovery room in stable condition. The went to the nursery in stable condition. I was present and scrubbed for the entire delivery. Baby Date of : 01/20/25 Time of : 10:34 Gestational Age by Date: 40 Infant gender: Female Weight (pounds): 8 Weight (ounces): 9 presentation: vertex position: Right Occiput Anterior Placenta delivery description: Spontaneous and Normal Configuration Cord Vessel Description: 3 Vessels and Delayed Cord Clamping score one minute: 8 score five minutes: 9
--- NOTE | 2025-01-20 10:46 | PM.OBDSVD ---
DS: Admitting Diagnosis Discharge Date 01/21/25 <Vanessa Colby APRN - Last Filed: 01/21/25 13:17> Admitting Diagnosis IUP at 40 1/7 weeks <Roland Levy MD - Last Filed: 01/25/25 17:36> DS: Discharge Diagnosis Discharge Diagnosis (1) (normal spontaneous vaginal delivery): Code(s): O80 - Encounter for full-term uncomplicated delivery <Roland Levy MD - Last Filed: 01/25/25 17:36> Status: Acute <Roland Levy MD - Last Filed: 01/25/25 17:36> OB - DS: Summary OB Procedures : None <Roland Levy MD - Last Filed: 01/25/25 17:36> OB Procedures Intrapartum: Spontaneous Vag Delivery <Roland Levy MD - Last Filed: 01/25/25 17:36> OB Procedures: : None <Roland Levy MD - Last Filed: 01/25/25 17:36> Peripartum Data Laceration Description: None <Roland Lvey MD - Last Filed: 01/25/25 17:36> Time Spent with Patient Time attestation: Total time spent providing and/or coordinating discharge services: <Roland Levy MD - Last Filed: 01/25/25 17:36> DS: Data Data Completed and Pending Labs on day of discharge: Labs from last 24 hours 01/20/25 05:38 WBC 10.9 H RBC 3.90 L Hgb 10.9 L D Hct 33.9 L MCV 86.9 MCH 27.9 MCHC 32.2 RDW 15.5 H Plt Count 243 MPV 12.4 H Immature Gran % (Auto) 0.5 Neut % (Auto) 75.0 H Lymph % (Auto) 17.0 L [place] % (Auto) 6.9 Eos % (Auto) 0.5 Baso % (Auto) 0.1 L Lymph # (Auto) 1.84 [place] # (Auto) 0.8 H Eos # (Auto) 0.1 Baso # (Auto) 0.0 Abs Immat Gran (auto) 0.05 H Absolute Neuts (auto) 8.2 H Absolute Nucleated RBC 0.000 Nucleated RBC % 0.0 Syphilis IgG/IgM Ab Non-reactive Blood Type A Positive Antibody Screen Positive Antibody Identification Anti-E Antigen Identification E Antigen - NEGATIVE NADIA, IgG Interpret Not Performed NADIA, Poly Interpret Negative NADIA, Complement Interp Not Performed Enhanced Crossmatch See Detail <Roland Levy MD - Last Filed: 01/25/25 17:36> Discharge Plan Discharge Attending physician on discharge: Roland Levy <Roland Levy MD - Last Filed: 01/25/25 17:36> Roland Levy <Vanessa Colby APRN - Last Filed: 01/21/25 13:17> Consulting providers: Maria G Dumont; Vanessa Colby <Roland Levy MD - Last Filed: 01/25/25 17:36> Discharging Clinician: Roland Levy <Roland Levy MD - Last Filed: 01/25/25 17:36> Roland Levy <Vanessa Colby APRN - Last Filed: 01/21/25 13:17> Patient Disposition: Home <Roland Levy MD - Last Filed: 01/25/25 17:36> Activity: pelvic rest <Roland Levy MD - Last Filed: 01/25/25 17:36> pelvic rest <Vanessa Colby APRN - Last Filed: 01/21/25 13:17> Diet: regular <Roland Levy MD - Last Filed: 01/25/25 17:36> regular <Vanessa Colby APRN - Last Filed: 01/21/25 13:17> Discharge Instructions: Education: Mom and Baby Guide Given to: Mother Follow-Up: Call your delivering provider's office for an appointment to be seen in: 6 Weeks Mom and baby should come to the [facility] for the follow-up appointment. Appointment Date/Time: January 24, 2025 at 12:30 pm What to expect at your follow-up visit: Blood Pressure Check Call [phone] if you are unable to keep your appointment time. BREAST CARE: * Wear a snug supportive bra. * For engorgement discomfort: Breast Feeding: * Apply warm moist washcloths * Express milk as needed to relieve engorgement * Wear loose clothing Bottle Feeding: * May apply ice packs * For sore nipples: * Identify correct latch-on * Apply warm moist washcloths before and after nursing * Air dry nipples after nursing * May apply Lansinoh cream to nipples ABDOMINAL INCISION: (if applicable) * Allow incision to air dry * Do NOT use lotions for powders on your incision * When showering, allow soap and water to run over the incision, but do not wash incision EPISIOTOMY/PERINEAL CARE: * Until bleeding stops, use your dov bottle after urinating * Change your pad frequently throughout the day * You may take sitz baths several times a day (fill your bathtub with warm water and soak for 20 minutes.) Do NOT bathe in the water * No tub baths until seen by your physician - You may shower ACTIVITY: * Rest as much as possible. * Do not exercise or lift anything heavier than your baby (such as laundry or other children.) * Avoid stairs or driving as much as possible. * Do not put anything into the vagina. No douching, tampons, or sexual activity until seen by physician. NOTIFY PHYSICIAN IF YOU HAVE ANY QUESTIONS OR IF ANY OF THE FOLLOWING SYMPTOMS OCCUR: * If your episiotomy or incision becomes red, swollen, or more painful than what you have experienced in the hospital. * If your vaginal bleeding becomes foul smelling. * If your vaginal bleeding becomes more heavy than a period or if your bleeding changes from pink to bright red. However, you may pass an occasional walnut-sized clot once or twice for the first week . * If you experience a sharp, shooting pain in you calves. * If you discover a hard, reddened area on your breast or if you experience flu-like symptoms. DIET: * Eat regular, well-balanced meals. * Drink plenty of fluids daily. If , drink to thirst. Call or return if temperature above 100.4? F, increased abdominal pain, increased vaginal bleeding or any new problems. <Roland Levy MD - Last Filed: 01/25/25 17:36> Patient Language: Maori <Roland Levy MD - Last Filed: 01/25/25 17:36> Stand Alone Forms: General Discharge Information <Roland Levy MD - Last Filed: 01/25/25 17:36> Follow-up/Referrals: Roland Levy MD [Physician] - 6 Weeks <Roland Levy MD - Last Filed: 01/25/25 17:36> Discharge Medications: New ibuprofen 600 mg tablet 600 mg PO Q6H PRN (Reason: cramps) Qty: 30 0RF Continued Multi 27-800 mg-mcg tablet PO valacyclovir [Valtrex] 500 mg tablet 500 mg PO DAILY <Roland Levy MD - Last Filed: 01/25/25 17:36> Date of admission: 01/20/25 04:57 <Roland Levy MD - Last Filed: 01/25/25 17:36> Primary Care Provider: UNKNOWN,DOCTOR <Roland Levy MD - Last Filed: 01/25/25 17:36> Admitting Provider: Roland Levy <Roland Levy MD - Last Filed: 01/25/25 17:36> Attending physician on admission: Roland Levy <Roland Levy MD - Last Filed: 01/25/25 17:36> Condition: Stable <Roland Levy MD - Last Filed: 01/25/25 17:36>
[2025-01-20] MEDS: OXYTOCIN 30 UNITS/NS 500 ML 30 UNITS/500 ML BAG 125 UNITS IV CONT (11:10)
--- NOTE | 2025-01-20 14:22 | OBPPTRN ---
Patient transferred to post room #285 via wheelchair. Support person present. Oriented to unit, room, information board, rooming in, admission packet and security measures. Patient verbalizes understanding.
[2025-01-20] MEDS: IBUPROFEN 600 MG TABLET PO (17:30)
[2025-01-20] MEDS: DOCUSATE SODIUM 100 MG CAPSULE PO (17:30)
[2025-01-21] MEDS: ACETAMINOPHEN 325 MG TABLET 650 MG PO (01:51)
[2025-01-21 04:34] LABS: Hematocrit 29.7 % (37.0-47.0); Hemoglobin 9.2 g/dL (12.0-15.0)
[2025-01-21] MEDS: DOCUSATE SODIUM 100 MG CAPSULE PO (07:29)
[2025-01-21 08:00] VITALS: BP 103/65; PULSE 86; RESP 16; TEMP 36.9; O2SAT 98
--- NOTE | 2025-01-21 09:49 | P.PNOB_ITS ---
OB - PN: Subj Subjective Date/time seen: 01/21/25 09:49 Interval history: 01/20/25 Patient comments: pain well controlled, tolerating diet, flatus present and other (Decreasing lochia.) baby status: doing well and bottle feeding well feeding status: exclusively bottle feeding OB - PN: Obj Data Labs 01/21/25 03:36 Labs: Laboratory Results - last 24 hr 01/21/25 03:36 Hgb 9.2 L Hct 29.7 L OB - PN A/P Assessment and Plan (1) (normal spontaneous vaginal delivery): Code(s): O80 - Encounter for full-term uncomplicated delivery Status: Acute Plan day: 1 Plan: routine care, discharge home and follow up 6 weeks Time Spent With Patient Time: Total time spent is greater than 50% in coordination of care (as documented) at patient's floor/unit and/or counseling patient: Time with patient: less than 15 minutes Review of Systems 2 Cardiovascular: Cardiovascular: Denies chest pain, Denies leg edema and Denies lightheadedness Respiratory: Respiratory: Reports no additional respiratory complaints Neurologic: Reports system reviewed and no additional complaints, except as documented Psychiatric: Psychiatric: Denies homicidal ideation and Denies suicidal ideation Exam 2 Const: General: cooperative and healthy appearing Eyes: General: appearance normal, both eyes and all related structures Resp: Effort & Inspection: normal respiratory effort and able to speak in complete sentences Cardio: Rate: regular rate Rhythm: regular rhythm GI: Inspection: normal to inspection GI Palp: Yes Soft to palpation and No Tenderness to palpation present (GI) Auscultation: normal bowel sounds : Other: fundus 1-2 below umbilicus Skin: General skin exam: normal color Neuro: General: oriented to person, oriented to place and oriented to time Extrem: General: no calf tenderness Psych: Affect: normal affect
[2025-01-24 13:00] VITALS: BP 120/71; PULSE 89; RESP 18; TEMP 36.5; O2SAT 99
== END 2025-01-21 14:11 | disposition home or self-care (01) | DRG 807 ==
LOC: ANHLDR 10:48 → ANHOB2 14:24
PROVIDERS: Admitting Provider Obstetrics & Gynecology; Visit Provider Obstetrics & Gynecology
DX: O80 Encounter for full-term uncomplicated delivery (principal); Z37.0 Single live birth; Z3A.40 40 weeks gestation of pregnancy
CPT/HCPCS: 36415; 85014; 85018; 85025; 86593; 86850; 86880; 86900; 86901; 86902; 86922; A9270; J2405; J2590; J2795; J3010; J7120